=== PATIENT | male | born 1950 | race Caucasian/White ===

== ENCOUNTER 2024-06-01 12:36 | Outpatient (RCR) | payer MEDICARE, SELFPAY ==
--- NOTE | 2024-06-01 15:13 | PT.OPEX ---
PT [place] Outpatient Eval PT [facility] Outpatient Eval Start: 06/01/24 13:00 Freq: Status: Active Protocol: Document 06/01/24 13:06 LESLI (Rec: 06/01/24 15:09 [facility] [id number]) E-signed By Antoinette Lozada PT Physical Therapy Outpatient Evaluation Insurance Information Recert Due Date 08/29/24 Insurance Name Medicare B Medical Diagnosis LEFT HIP OA Treating Diagnosis LEFT HIP PAIN ANTALGIC GAIT Referring MD VEGA Subjective Preferred Name CARMINE Urbina PATIENT REPORTS A STEADY DECLINE SINCE LAST FALL INDICATING THAT TRANSFERRING IN /OUT OF TRUCK, RISING FROM SEATED POSITION, STAIRS ARE HIS GREATEST CHALLENGE D/T PAIN. HE HAS A H/O OF LUMBAR SURGERY/PATHOLOGY >35 YEARS AND FIRST WENT TO [facility] AND THEN [facility] THINKING HIS PAIN WAS ORIGINATING FROM HIS BACK. XRAYS/MRI REVEALED SEVERE HIP OA WELL BACK PATHOLOGY. AT THIS TIME, THE PAINT LABORATORY TECHNICIAN INSTRUCTED HIM TO ADDRESS HIS HIP FIRST. 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 VEGA FOR PREOPERATIVE TEACHING FOR SURGERY OF LEFT RITO SCHEDULED 06/09/24. PATIENT HAS H/O LUMBAR SX IN 1984- LAMINECTOMY, AND LEFT HIP OA. EXTENSIVE DISCUSSION AND EDUCATION REGARDING WHAT TO EXPECT IN REGARD TO SYMPTOMS, MOBILITY, AND SAFETY CONCERNS POST OPERATIVELY. DISCUSSED BATHROOM MODIFICATION FOR SAFE AND EFFICIENT TOILET TRANSFERS ALONG WITH NAVIGATING WALK IN SHOWER. INSTRUCTIONS TO OBTAIN A FWW FROM EITHER A PEER OR PURCHASE. EDUCATED PATIENT ON CLEARING PATHWAYS AND SETTING UP HIS POST OPERATIVE SLEEPING ARRANGEMENTS. HE AND HIS ARE INSTRUCTED TO BE READY THE NEXT MORNING BY 8AM WITH WALKER BROUGHT FROM HOME. DISCUSSED THE ANTERIOR HIP APPROACH PRECAUTIONS AND DEMONSTRATED THOSE PRECAUTIONS ALONG WITH DEMONSTRATED AND PRACTICED STAIRS. HE DOES NOT HAVE TO USE THE STAIRS TO ENTER HIS HOME BUT WILL EVENTUALLY NAVIGATE PERFERED ENTRANCE. ALL QUESTIONS WERE ANSWERED AND READY FOR SURGERY. Primary Functional Limitations STAIRS GAIT TRANSFERS PROLONGED POSITIONS Plan of Care Rehabilitation Potential Good Physical Therapy Goals 1. PATIENT WILL BE EDUCATED IN RITO PRE/POST OP SAFETY, MOBILITY, AND EXERCISES WITH WRITTEN COPY OF HER HEP PROVIDED AND PATIENT RETURNING FOR POST OPERATIVE THERAPY AFTER LEFT RITO ON 06/09/24 PATIENT GOALS WILL BE UPDATED TO RITO REHAB GOALS POST SURGERY. Coordination/Communication With Referral Source Treatment Plan/Direct Interventions Self-Care/Home Management, Therapeutic Exercises Discharge Plan Comments EVAL ONLY; POST OP PHYSICAL THERAPY SCHEDULED AT [facility] Evaluation Billing Untimed Code Treatment Minutes 15 PT Eval No Charge No Complexity Low Certification Information Initial Certification Date 06/01/24 Ending Certification Date 08/29/24 Provider Signature Required Yes Provider Signature Shows Agreement With POC & Medical Necessity Physician NPI Number Write NPI# Here Physician Comment/Change : Physician Signature & Date Requested Please Sign/Date Here
== END 2024-08-17 13:40 | disposition home or self-care (01) ==
PROVIDERS: Visit Provider Orthopaedic Surgery
DX: M16.12 Unilateral primary osteoarthritis, left hip (principal); Z96.642 Presence of left artificial hip joint; Z51.89 Encounter for other specified aftercare
CPT/HCPCS: 97110; 97161

== ENCOUNTER 2024-06-09 08:14 | Day surgery (SDC) | payer MEDICARE, SELFPAY ==
[2024-06-09] VITALS (26 sets, daily range): BP systolic 90–141; BP diastolic 54–85; PULSE 51–87; RESP 9–17; TEMP 35.1–36.6; O2SAT 84–100; BMI 33.3
[2024-06-09] MEDS: ACETAMINOPHEN 500 MG TABLET 1000 MG PO ×3 (08:45→22:13)
[2024-06-09] MEDS: OXYCODONE (CR) 10 MG TAB.ER.12H PO (08:45)
[2024-06-09] MEDS: CELECOXIB 200 MG CAPSULE PO (08:45)
[2024-06-09] MEDS: SODIUM CHLORIDE 0.9 % (FLUSH) 10 ML SYRINGE IVF (09:00)
[2024-06-09] MEDS: LACTATED RINGERS 1000 ML 1,000 ML 100 ML IV ×2 (09:00→12:46)
[2024-06-09] MEDS: MIDAZOLAM HCL 1 MG/ML inj IVP (10:10)
[2024-06-09] MEDS: fentaNYL 100 MCG/2 ML inj IVP (10:10)
--- NOTE | 2024-06-09 10:10 | SUR.PREOP ---
TIME?OUT:?1009 PT/RN/MDA?VERIFICATION?OF?SURGICAL?SITE,?PROCEDURE,?AND?CONSENT OBTAINED?PRIOR?TO?INVASIVE?PROCEDURE.
--- NOTE | 2024-06-09 10:30 | CRLHL7_ITS ---
For Patients: As a result of the Cures Act, medical imaging exams and procedure reports are released immediately into your electronic medical record. You may view this report before your referring provider. If you have questions, please contact your health care provider. Indication: Hip replacement surgery Technique: AP hip fluoroscopic image. Fluoroscopy time 59.3 seconds. Findings/Impression: Hardware from a left total hip arthroplasty is in satisfactory position. Dictated by Frank Clifton MD @ 06/09/2024 12:14:32 PM (Electronically Signed)
[2024-06-09] MEDS: CEFAZOLIN 2 GM INJ IVP (10:40)
--- NOTE | 2024-06-09 10:40 | SUR.OPER ---
PATIENT QUESTIONS ANSWERED SATISFACTORILY PREOPERATIVELY.? PATIENT BROUGHT TO OR #3 PER CART AFTER ADMINISTRATION OF A BLOCK.? Patient positioned supine on OR #3 bed.? The perioperative?team supported arms bilaterally on arm boards.?Final approval of positioning by surgeon.?
--- NOTE | 2024-06-09 10:41 | P.NB_ITS ---
Nerve Block Nerve Block Time Seen by Provider: 10:10 Date Seen: 06/09/24 Type of block requested by surgeon for post-operative analgesia: RENUKA/LFCN Side: left Time out performed: Yes Verification of patient name: Yes Verification of date of : Yes Site marking: site marked Name of person performing procedure: Gilbert Continuous monitoring Was continuous monitoring of O2 sat, B/P, splitting machine tender, recorded every 15 minutes?: Yes Procedure Checklist: sterile prep, needles and gloves Ultrasound guided. Images saved: Yes Medications given in 5ml increments after negative aspiration: Ropivicaine %: 0.5 mL: 30 Needle gauge: 20 Precedex (mcg): 25 Patient tolerated procedure well: Yes Additional comments: Needle noted below psoas tendon needle noted adjacent to LFCN Block Charges Block Charge (with Pro Fee): Other Periph Nerve Block Use of Ultrasound Machine for Block: Yes- US Guidance/pain block
--- NOTE | 2024-06-09 10:41 | P.ANES_ITS ---
Anesthesia Charges Start Date/Time Anesthesia Start Date: 06/09/24 Anesthesia Start Time: 10:18 Stop Date/Time Anesthesia Stop Date: 06/09/24 Anesthesia Stop Time: 12:40 Summary Extremes of Age - Over 70 or under 1: MDA Coding CPT Codes CPT Codes: ANESTH HIP ARTHROPLASTY - 78035 ([id number]) P2 - PATIENT W/MILD SYST DISEASE, QK - SMASH HAND 2-4 CNCRNT ANES PROC, QX - ROCK SPLITTER SVC W/ MD MED DIRECTION Additional Codes: Summary - Extremes of Age - Over 70 or under 1: MDA ([id number])
--- NOTE | 2024-06-09 10:41 | W.ANESCHARGE ---
Anesthesia Charges Start Date/Time Anesthesia Start Date: 06/09/24 Anesthesia Start Time: 10:18 Stop Date/Time Anesthesia Stop Date: 06/09/24 Anesthesia Stop Time: 12:40 Summary Extremes of Age - Over 70 or under 1: MDA Coding CPT Codes CPT Codes: ANESTH HIP ARTHROPLASTY - 08762 ([id number]) P2 - PATIENT W/MILD SYST DISEASE, QK - MANAGER SMALL BUSINESS 2-4 CNCRNT ANES PROC, QX - RECOVERY ROOM NURSE SVC W/ MD MED DIRECTION Additional Codes: Summary - Extremes of Age - Over 70 or under 1: MDA ([id number])
[2024-06-09] MEDS: TRANEXAMIC ACID 100 MG/ML INJ 1000 MG IV (10:42)
--- NOTE | 2024-06-09 12:10 | CRLHL7_ITS ---
For Patients: As a result of the Cures Act, medical imaging exams and procedure reports are released immediately into your electronic medical record. You may view this report before your referring provider. If you have questions, please contact your health care provider. Indication: Post op left RITO Technique: AP hip centered pelvis and lateral view left hip Findings/Impression: Hardware from a left total hip arthroplasty is in satisfactory position. Bone alignment is normal. No sign of acute fracture. Postop changes are within normal limits. Dictated by Frank Clifton MD @ 06/10/2024 12:13:00 PM (Electronically Signed)
--- NOTE | 2024-06-09 12:17 | PM.ORPRC ---
Procedure Note Date of procedure: 06/09/24 Procedure: PREOPERATIVE DIAGNOSIS: Left hip osteoarthritis POSTOPERATIVE DIAGNOSIS: Left hip osteoarthritis NAME OF OPERATION: Left total hip arthroplasty SURGEON: Isrrael Moseley MD STATISTICAL CLERK: Itzel Howell PA-C, LUIS ENRIQUE Gonzalez IMPLANTS: 1. [employer] [place] # 54 sector ingrowth cup 2. 36 x 54 +4 neutral polyethylene 3. Actis # 7 high offset collared ingrowth stem 4. 36 -2 cobalt chrome femoral head ANESTHESIA: Spinal ESTIMATED BLOOD LOSS: 750 cc COMPLICATIONS: None SPECIMENS: None DRAINS: None PREOPERATIVE ANTIBIOTICS: Ancef 2 grams INDICATIONS: The patient is a 74-year-old with a longstanding history of severe, unrelenting left hip pain secondary to end-stage left hip osteoarthritis. Despite appropriate nonoperative management, including activity modification, use of an assist device, anti-inflammatories, [id number] pain medication, physical therapy and injections, they continue to have pain and disability. Operative intervention was offered. The risks, benefits and expected outcomes were discussed in detail. These included but were not limited to: Infection, bleeding, injury to blood vessel or nerve, venous thromboembolism. All questions were answered to their satisfaction. Use of an sourcing assistant was necessary throughout the case for patient positioning and safety, soft tissue retraction and closure. PROCEDURE: The patient was placed supine on the [place] table. General anesthesia was administered. The sourcing assistant made sure the patient was properly positioned. The left hip was prepped and draped in the usual sterile fashion. The image intensifier was brought in for a perfect AP pelvis and a perfect double tear drop AP view of each hip which were used for intraoperative templating with our fluoroscopic guide. An oblique incision was made 3 cm distal and 3 cm lateral to the anterior superior iliac spine. The sourcing assistant retracted the soft tissues to protect them. Subcutaneous dissection was taken with electrocautery to the superficial fascia. The fascia was divided in line with the incision. Blunt dissection was carried medially to the tensor fascia brandon and sartorius interval. Deep dissection was carried with electrocautery. The circumflex vessels were cauterized and divided. The capsule was exposed and then divided in a T-fashion, tagged with #1 Ethibond sutures. Retractors were placed in the joint, held by the sourcing assistant. The corkscrew was placed in the femoral head. The neck cut was made in the subcapital region. We made a second neck cut more distal. The napkin ring of bone was removed. The femoral head was removed intact. Acetabular retractors were placed, held by the sourcing assistant. The labrum was sharply debrided. The capsule was released. The 43 mm reamer was used to the true medial wall. We then enlarged in 2 mm increments using the image intensifier for our reamer placement. We impacted the cup which had excellent purchase. We placed the polyethylene. Attention was then turned to the proximal femur. The limb was placed in 140 degrees of external rotation, maximum extension and adduction. A significant amount of time was spent releasing the capsule to allow us to deliver the femur into the wound and complete the femoral side safely. Retractors were held by the sourcing assistant throughout the femoral preparation. The box toe cutter and canal finder were used. Broaches were used to a stable size. The calcar reamer was used. Trial components were placed. The hip was reduced and was found to be stable with appropriate soft tissue tension. Length and offset had been nicely restored using the image intensifier and our fluoroscopic guide. Trial components were removed. The stem was impacted. We placed the femoral head. Again, the hip was reduced and was found to be stable with appropriate soft tissue tension. Length and offset had been nicely restored. The sourcing assistant did a three minute dilute Betadine solution soak. The sourcing assistant irrigated the wound with 3 liters of normal saline via pulse lavage. The sourcing assistant repaired the anterior capsule with a #1 Vicryl and our previously placed Ethibond sutures. The sourcing assistant closed the fascia over the tensor fascia brandon with a #1 PDO Stratafix, subcutaneous tissues with 2-0 Vicryl, skin with a running 3-0 Stratafix and glue. A dry dressing was applied by the sourcing assistant. Sponge and needle counts were correct x 2. The patient tolerated the procedure well; there were no apparent complications. They were awakened and extubated in the operating room, sent to the Post-Anesthesia Care Unit in satisfactory condition. PLAN: 1. The patient will be mobilized with physical therapy, weight-bearing as tolerates 2. Xarelto x 5 days then aspirin x 30 days will be used for DVT prophylaxis 3. The patient will be discharged once medically appropriate
--- NOTE | 2024-06-09 12:40 | P.ANES_ITS ---
Anesthesia Charges Start Date/Time Anesthesia Start Date: 06/09/24 Anesthesia Start Time: 10:18 Stop Date/Time Anesthesia Stop Date: 06/09/24 Anesthesia Stop Time: 12:40 Summary Extremes of Age - Over 70 or under 1: AIR HOSE COUPLER Coding CPT Codes CPT Codes: ANESTH HIP ARTHROPLASTY - 17071 ([id number]) P2 - PATIENT W/MILD SYST DISEASE, QK - COAGULANT DIPPER 2-4 CNCRNT ANES PROC, QX - AIR HOSE COUPLER SVC W/ MD MED DIRECTION Additional Codes: Summary - Extremes of Age - Over 70 or under 1: AIR HOSE COUPLER ([id number])
--- NOTE | 2024-06-09 12:40 | W.ANESCHARGE ---
Anesthesia Charges Start Date/Time Anesthesia Start Date: 06/09/24 Anesthesia Start Time: 10:18 Stop Date/Time Anesthesia Stop Date: 06/09/24 Anesthesia Stop Time: 12:40 Summary Extremes of Age - Over 70 or under 1: BUSINESS DEVELOPER Coding CPT Codes CPT Codes: ANESTH HIP ARTHROPLASTY - 08324 ([id number]) P2 - PATIENT W/MILD SYST DISEASE, QK - MANAGER AMBULATORY 2-4 CNCRNT ANES PROC, QX - BUSINESS DEVELOPER SVC W/ MD MED DIRECTION Additional Codes: Summary - Extremes of Age - Over 70 or under 1: BUSINESS DEVELOPER ([id number])
[2024-06-09] MEDS: fentaNYL 100 MCG/2 ML inj 50 MCG IVP (13:19)
[2024-06-09] MEDS: LACTATED RINGERS 500 ML 500 ML 125 ML IV (13:25)
[2024-06-09] MEDS: HYDROmorphone 0.5 mg/0.5 ml inj IVP (14:26)
--- NOTE | 2024-06-09 15:26 | PC.NURSE ---
End of shift: Patient is alert and oriented. VS WNL. aferbrile. Denies N/V. Dressing on left hip is CDI. On RA. Rates pain from 5-7 pain meds offered and utilized with relief. Tolerating ice chips and water.
[2024-06-09] MEDS: CEFAZOLIN 2 GM in 0.9 % SODIUM CHLORIDE Mini-bag 100 ML IVPB ×2 (16:13→23:49)
[2024-06-09] MEDS: LACTATED RINGERS 1000 ML 1,000 ML 75 ML IV (17:58)
--- NOTE | 2024-06-09 19:38 | PM.IMCN1 ---
Date of Consult Consult date: 06/09/24 Requesting Physician: Orthopedics Primary Care Provider: Tal Moncada NP at [place] Consult Narrative Reason for consult: Medical management of comorbidities Narrative: Zev Arzola is a 74 year old male who presented to the hospital today for an elective LTHA with Dr. Moseley. There were no surgical or anesthetic complications noted during procedure. Patient's H&P reviewed, PCP is Tal Moncada NP at [facility]. Past medical history significant for: GERD, hyperlipidemia, previous back surgery/arthritis History of blood clots: No Postoperative plan: Home with Review of Systems Status of ROS: Reports: 10 or more systems reviewed and unremarkable except as noted in History and below [facility] Medical History (Updated 06/09/24 @ 19:52 by Lorena Evangelista MD) Hyperlipidemia ?E78.5 - Hyperlipidemia, unspecified (ICD-10) GERD (gastroesophageal reflux disease) ?K21.9 - Gastro-esophageal reflux disease without esophagitis (ICD-10) Surgical History (Updated 06/09/24 @ 19:52 by Lorena Evangelista MD) History of total left hip replacement (06/09/24) ?Z96.642 - Presence of left artificial hip joint (ICD-10) H/O hernia repair ?Z98.890 - Other specified postprocedural states (ICD-10) ?Z87.19 - Personal history of other diseases of the digestive system (ICD-10) History of laminectomy (1981) ?Z98.890 - Other specified postprocedural states (ICD-10) Social History (Updated 05/18/24 @ 13:28 by Katie Stephenson ~ [facility], [facility]) Narrative: -Taylor Meneses What is your current living situation?: I presently have a place to live Problems where you live: no known problems In the past 12 months, utilities in danger of being shut off: no In past 12 months, lack of transportation kept you from medical appts, meetings, work, or getting things needed for daily living: no In the past 12 mos, have been you worried that your food would run out before you had money to buy more?: never true In the past 12 mos, the food you bought just didn't last and you didn't have money to buy more?: never true Highest level of school completed/degree received: some college, no degree Smoking Status: Never smoker Do you use any of these nicotine containing products: None Second hand tobacco smoke exposure: No How often do you have a drink containing alcohol: never How often do you have six or more drinks on one occasion: Never AUDIT-C Alcohol total score: 0 Non-prescribed substance use: denies use Caffeine: Yes How often does anyone, including family, friends and others, physically hurt you: never How often does anyone, including family, friends and others, insult or talk down to you: never How often does anyone, including family, friends and others, threaten you with harm: never How often does anyone, including family, friends and others, scream or curse at you: never service: No Meds Home Medications and Allergies Home Medications ?Medication ?Instructions ?Recorded ?Confirmed ?Type atorvastatin 20 mg tablet 20 mg PO QPM 05/18/24 06/09/24 History meloxicam 7.5 mg tablet 7.5 mg PO DAILY 05/18/24 06/09/24 History omeprazole 10 mg capsule,delayed 10 mg PO QAM 05/18/24 06/09/24 History release pregabalin 100 mg capsule 100 mg PO QAM 05/18/24 06/09/24 History pregabalin 150 mg capsule 150 mg PO QPM 05/18/24 06/09/24 History Allergies Allergy/AdvReac Type Severity Reaction Status Date / Time No Known Drug Allergies Allergy Verified 06/09/24 08:28 Exam Narrative: Exam Narrative: GEN: Alert and oriented, laying comfortably in bed HEENT: Normal external ears, EOMIs bilaterally, no scleral icterus CV: RRR, No concerning murmurs R: LCTA bilaterally without concerning wheezing Ext: wwp, no concerning edema, wearing SCDs Skin: No concerning skin lesions or rashes on exposed skin Neuro: Nonfocal Psych: Appropriate Const: Vital Signs, click to edit/add: Vital Signs - 24 hr 06/09/24 08:47 06/09/24 10:10 06/09/24 10:15 Temperature 97.7 F Pulse Rate 63 65 67 Respiratory Rate 16 16 16 Blood Pressure 125/77 141/75 H 122/82 Pulse Oximetry 95 97 95 Oxygen Delivery Me thod Room Air Nasal Cannula Nasal Cannula Oxygen Flow Rate 1 1 06/09/24 12:40 06/09/24 12:45 06/09/24 12:50 Temperature 97.1 F L Pulse Rate 61 62 62 Respiratory Rate 12 12 9 L Blood Pressure 90/54 L 102/65 102/65 Pulse Oximetry 84 L 98 100 Oxygen Delivery Me thod OxyMask OxyMask OxyMask Oxygen Flow Rate 10 8 8 06/09/24 12:55 06/09/24 13:00 06/09/24 13:05 Temperature Pulse Rate 57 L 60 56 L Respiratory Rate 17 14 12 Blood Pressure 108/68 104/66 111/68 Pulse Oximetry 99 97 98 Oxygen Delivery Me thod Room Air Room Air Room Air Oxygen Flow Rate 06/09/24 13:10 06/09/24 13:15 06/09/24 13:20 Temperature Pulse Rate 58 L 58 L 59 L Respiratory Rate 11 L 10 L 10 L Blood Pressure 108/76 106/65 112/65 Pulse Oximetry 98 98 98 Oxygen Delivery Me thod Room Air Room Air Room Air Oxygen Flow Rate 06/09/24 13:25 06/09/24 13:30 06/09/24 13:45 Temperature 95.4 F L Pulse Rate 58 L 61 60 Respiratory Rate 16 14 12 Blood Pressure 107/68 114/67 113/73 Pulse Oximetry 98 96 97 Oxygen Delivery Me thod Room Air Room Air Room Air Oxygen Flow Rate 06/09/24 14:00 06/09/24 14:15 06/09/24 14:30 Temperature 96.1 F L 95.3 F L 95.8 F L Pulse Rate 51 L 56 L 62 Respiratory Rate 14 14 16 Blood Pressure 117/61 113/62 120/57 L Pulse Oximetry 97 97 96 Oxygen Delivery Me thod Room Air Room Air Room Air Oxygen Flow Rate 06/09/24 14:45 06/09/24 15:15 06/09/24 15:45 Temperature 95.2 F L 96.3 F L Pulse Rate 62 67 Respiratory Rate 16 16 16 Blood Pressure 124/68 126/80 Pulse Oximetry 96 94 96 Oxygen Delivery Me thod Room Air Room Air Room Air Oxygen Flow Rate 06/09/24 15:45 06/09/24 16:45 06/09/24 18:45 Temperature 96.1 F L Pulse Rate 70 75 87 Respiratory Rate 16 16 16 Blood Pressure 128/80 127/75 115/73 Pulse Oximetry 96 95 93 Oxygen Delivery Me thod Room Air Room Air Room Air Oxygen Flow Rate Assessment and Plan Assessment and plan (1) History of total left hip replacement: Problem comment: - Left total hip arthroplasty. Dr. Moseley, 06/09/24 Status: Acute Plan - ppx and pain management per Ortho - anticipate routine postoperative course - continue home medications
[2024-06-09] MEDS: SENNOSIDES 1 TAB TABLET 2 TAB PO (21:21)
[2024-06-09] MEDS: OXYCODONE 5 MG TABLET PO (21:22)
--- NOTE | 2024-06-09 22:40 | PC.NURSE ---
Shift note ([id number]) The Pt has been pleasant and cooperative; denied chest pain and short of breath; Spo2 has been in the 90s in RA. The surgical dressing to the left hip is C/D/I; The pt was c/o 2-07/30 pain to left hip- the pain has been well managed with PRN and scheduled pain medication; Ice pack has been applied to left hip. The pt was up to chair for a couple of hours; Ambulated a few feet outside of the room with 1 assist a walker and gait belt- tolerated with minimal pain. The pt had uneventful shift.
[2024-06-10 01:59] VITALS: BP 116/75; PULSE 88; RESP 18; TEMP 36.7; O2SAT 95
[2024-06-10 02:04] VITALS: BP 116/75; PULSE 88; RESP 18; TEMP 36.7; O2SAT 95
[2024-06-10] MEDS: ACETAMINOPHEN 500 MG TABLET 1000 MG PO ×2 (04:09→09:45)
--- NOTE | 2024-06-10 06:50 | PC.NURSE ---
End of shift [id number]: Pt AxOx4, pleasant, and cooperative with cares. Op site remains CDI, active ice applied. Pain was rated a 3/10 during the shift that was well managed with scheduled medication, ice, and repositioning. Pt continent of the bladder. Adequate PO intake, SL. A1 GB W to the bathroom. Pt appears resting in bed watching television with call light in reach. ?
[2024-06-10 07:21] LABS: Basophils Percent Auto 0.1 % (0.0-3.0); Hematocrit 36.5 % (37.0-53.0); Hemoglobin* 11.9 gm/dL (13.5-17.5); Immature Granulocytes Pct Auto 0.1 %; Lymphocytes Percent Auto 10.8 % (20-44); Mean Corpuscular HGB Conc 33 gm/dL (32-36); Mean Corpuscular Hemoglobin 30 pg (26-34); Mean Corpuscular Volume 91 fL (80-100); Monocytes Percent Auto 9.3 % (0.0-11.0); Neutrophils Percent Auto 79.7 % (42.0-72.0); Platelet Count* 218 K/uL (140-440); RDW Coefficient of Variation % 12.7 % (11.5-15.5); Red Blood Count 4.03 m/uL (4.30-5.90)
[2024-06-10 07:22] LABS: Potassium* 4.6 mmol/L (3.6-5.1); Sodium* 132 mmol/L (135-149)
[2024-06-10 07:25] LABS: Blood Urea Nitrogen* 22 mg/dL (7-30); Creatinine* 1.1 mg/dL (0.5-1.5); Est. Creatinine Clearance* 56.14; Estimated Glomerular Filt Rate 70 ml/min
[2024-06-10 07:30] LABS: Slide Review Reflex No
[2024-06-10] MEDS: RIVAROXABAN 10 MG TABLET PO (08:12)
[2024-06-10] MEDS: OXYCODONE 5 MG TABLET PO ×2 (08:12→09:45)
[2024-06-10] MEDS: SENNOSIDES 1 TAB TABLET 2 TAB PO (08:13)
[2024-06-10] MEDS: OMEPRAZOLE 20 MG CAPSULE DR PO (08:13)
--- NOTE | 2024-06-10 08:16 | PM.ORPN ---
Subjective Subjective Time Seen by Provider: 07:15 Date Seen: 06/10/24 Principal diagnosis: Status post left hip replacement Interval history: Zev is comfortable in bed this morning. He will discharge to home today. He denies nausea vomiting. Ortho Exam Narrative Exam Narrative: Alert and oriented x3. Patient is in no acute distress. Converses without labored breathing. Hearing is grossly intact. Ambulates with a walker. Examination of the left hip shows mild ecchymosis. Edema is present about the hip and thigh. Dressing is intact. CMS intact left lower extremity. Calves are soft and nontender. He is easily able to flex and extend his hip in the supine position. Const Vital Signs, click to edit/add: Vital Signs - 24 hr 06/09/24 08:47 06/09/24 10:10 06/09/24 10:15 Temperature 97.7 F Pulse Rate 63 65 67 Pulse Rate [Right Pulse Oximeter] Respiratory Rate 16 16 16 Blood Pressure 125/77 141/75 H 122/82 Blood Pressure [Left Arm] Pulse Oximetry 95 97 95 Oxygen Delivery Method Room Air Nasal Cannula Nasal Cannula Oxygen Flow Rate 1 1 06/09/24 12:40 06/09/24 12:45 06/09/24 12:50 Temperature 97.1 F L Pulse Rate 61 62 62 Pulse Rate [Right Pulse Oximeter] Respiratory Rate 12 12 9 L Blood Pressure 90/54 L 102/65 102/65 Blood Pressure [Left Arm] Pulse Oximetry 84 L 98 100 Oxygen Delivery Method OxyMask OxyMask OxyMask Oxygen Flow Rate 10 8 8 06/09/24 12:55 06/09/24 13:00 06/09/24 13:05 Temperature Pulse Rate 57 L 60 56 L Pulse Rate [Right Pulse Oximeter] Respiratory Rate 17 14 12 Blood Pressure 108/68 104/66 111/68 Blood Pressure [Left Arm] Pulse Oximetry 99 97 98 Oxygen Delivery Method Room Air Room Air Room Air Oxygen Flow Rate 06/09/24 13:10 06/09/24 13:15 06/09/24 13:20 Temperature Pulse Rate 58 L 58 L 59 L Pulse Rate [Right Pulse Oximeter] Respiratory Rate 11 L 10 L 10 L Blood Pressure 108/76 106/65 112/65 Blood Pressure [Left Arm] Pulse Oximetry 98 98 98 Oxygen Delivery Method Room Air Room Air Room Air Oxygen Flow Rate 06/09/24 13:25 06/09/24 13:30 06/09/24 13:45 Temperature 95.4 F L Pulse Rate 58 L 61 60 Pulse Rate [Right Pulse Oximeter] Respiratory Rate 16 14 12 Blood Pressure 107/68 114/67 113/73 Blood Pressure [Left Arm] Pulse Oximetry 98 96 97 Oxygen Delivery Method Room Air Room Air Room Air Oxygen Flow Rate 06/09/24 14:00 06/09/24 14:15 06/09/24 14:30 Temperature 96.1 F L 95.3 F L 95.8 F L Pulse Rate 51 L 56 L 62 Pulse Rate [Right Pulse Oximeter] Respiratory Rate 14 14 16 Blood Pressure 117/61 113/62 120/57 L Blood Pressure [Left Arm] Pulse Oximetry 97 97 96 Oxygen Delivery Method Room Air Room Air Room Air Oxygen Flow Rate 06/09/24 14:45 06/09/24 15:15 06/09/24 15:45 Temperature 95.2 F L 96.3 F L Pulse Rate 62 67 Pulse Rate [Right Pulse Oximeter] Respiratory Rate 16 16 16 Blood Pressure 124/68 126/80 Blood Pressure [Left Arm] Pulse Oximetry 96 94 96 Oxygen Delivery Method Room Air Room Air Room Air Oxygen Flow Rate 06/09/24 15:45 06/09/24 16:45 06/09/24 18:45 Temperature 96.1 F L Pulse Rate 70 75 87 Pulse Rate [Right Pulse Oximeter] Respiratory Rate 16 16 16 Blood Pressure 128/80 127/75 115/73 Blood Pressure [Left Arm] Pulse Oximetry 96 95 93 Oxygen Delivery Method Room Air Room Air Room Air Oxygen Flow Rate 06/09/24 19:00 06/09/24 21:00 06/09/24 23:00 Temperature 96.5 F L 98 F Pulse Rate 76 Pulse Rate [Right Pulse Oximeter] 74 Respiratory Rate 16 16 16 Blood Pressure 136/85 Blood Pressure [Left Arm] 124/69 Pulse Oximetry 96 96 93 Oxygen Delivery Method Room Air Room Air Room Air Oxygen Flow Rate 06/09/24 23:00 06/10/24 01:59 06/10/24 02:04 Temperature 98.0 F 98.0 F Pulse Rate Pulse Rate [Right Pulse Oximeter] 88 88 Respiratory Rate 16 18 18 Blood Pressure Blood Pressure [Left Arm] 116/75 116/75 Pulse Oximetry 93 95 95 Oxygen Delivery Method Room Air Room Air Oxygen Flow Rate Assessment and Plan Assessment and plan (1) History of total left hip replacement: Problem details: - Left total hip arthroplasty. Dr. Moseley, 06/09/24 Status: Acute Assessment and Plan: Plan for discharge is today, and when they meets discharge criteria. DVT prophylaxis upon discharge [includes Xarelto 10mg daily for a total of 5 days, then Aspirin 81mg twice daily for 30 days]. Remove dressing 1 week. Observe wound and phone Orthopedics with any questions or concerns Use Ice on operative hip unrestricted. Return to clinic in 7-10 days for a wound check Return to clinic in 6 weeks with surgeon Minimize narcotic use. Wean off and discontinue soon as possible. Activities as tolerated. No strenuous activity. Attend outpt PT
[2024-06-10 08:17] VITALS: BP 107/63; PULSE 76; PULSE 77; RESP 18; O2SAT 96
--- NOTE | 2024-06-10 10:20 | PC.NURSE ---
Nursing Care Hours: 3052-1180 Pt this shift alert and oriented, calm and cooperative. Pain tolerated prior to therapies, increased to 7/10 post therapy and treated with PO pain meds. Bandage CDI, pedal pulses present bilaterally. VSS. IV removed for discharge. Instructions went over with pt, spouse, and family member. No questions or concerns from pt or family. Pt wheeled out to van in stable condition.
== END 2024-06-10 10:00 | disposition home or self-care (01) ==
LOC: OR 08:16 → MEDSURG 08:22
PROVIDERS: Visit Provider Orthopaedic Surgery
PROC: (CPT 27130; principal; 2024-06-09 10:30)
DX: M16.12 Unilateral primary osteoarthritis, left hip (principal); G89.18 Other acute postprocedural pain; E78.5 Hyperlipidemia, unspecified; K21.9 Gastro-esophageal reflux disease without esophagitis
CPT/HCPCS: 27130; 01214; 36415; 64450; 73501; 76000; 76942; 82565; 84132; 84295; 84520; 85025; 86850; 86900; 86901; 97110; 97116; 97161; 97165; 97530; 97535; 99100; A9270; C1776; J0690; J1100; J1171; J2250; J2371; J2405; J2704; J2795; J3010; J3490; J7120